=== PATIENT | female | born 1990 | race American Indian/Alaskan Native ===

== ENCOUNTER 2020-01-10 12:39 | Emergency (ER) | payer SELFPAY ==
--- NOTE | 2020-01-10 12:58 | Emergency Department Report ---
Blank Doc - Documentation Documentation: 29-year-old female that presents with left facial swelling, fever, and dental pain. Was sent by [facility]. Has seen dentist and stated to come to the ED. This initial assessment/diagnostic orders/clinical plan/treatment(s) is/are subject to change based on patient's health status, clinical progression and re- assessment by fellow clinical providers in the ED. Further treatment and workup at subsequent clinical providers discretion. Patient/guardians urged not to elope from the ED as their condition may be serious if not clinically assessed and managed. Initial orders include: 1- Patient sent to [facility] for further evaluation and treatment 2- labs for possible CT scan
[2020-01-10 13:56] LABS: Basophils % (Auto) 0.3 % (0.0-1.8); Eosinophils % (Auto) 0.2 % (0.0-4.3); Hematocrit 42.5 % (30.3-42.9); Lymphocytes # (Auto) 0.7 K/mm3 (1.2-5.4); Lymphocytes % (Auto) 7.3 % (13.4-35.0); Mean Corpuscular HGB Conc 33 % (30-34); Mean Corpuscular Volume 91 fl (79-97); Monocytes # (Auto) 0.9 K/mm3 (0.0-0.8); Monocytes % (Auto) 8.9 % (0.0-7.3); Platelet Count 182 K/mm3 (140-440); Red Cell Distribution Width 14.7 % (13.2-15.2)
[2020-01-10 13:58] LABS: BUN/Creatinine Ratio 13; Blood Urea Nitrogen 10 mg/dL (7-17); Calcium 9.4 mg/dL (8.4-10.2); Hemolysis Index 4
--- NOTE | 2020-01-10 18:48 | Emergency Department Report ---
ED ENT HPI - General Chief complaint: Dental/Oral Stated complaint: LFT SIDE SWELLING/PAIN EXTREME Time Seen by Provider: 01/10/20 12:56 Source: patient Mode of arrival: Ambulatory Limitations: No Limitations - History of Present Illness Initial comments: 29-year-old -[place] Citizen female presents to the emergency room complaining of left jaw pain for the last 5 weeks. Patient states that she went to her primary care provider at [place] and they referred her to a dentist. Patient states that she then went to the dentist and they referred her to an oral surgeon. Patient states that she went back to her regular dentist as she did not have a $300 to pay the oral surgeon. Patient states that her general dentist tried numbing her and it has made the pain worse now with swelling. It was noted in triage the patient had an elevated blood pressure with no diagnosis of hypertension as well as an elevated temperature of 100.1. MD complaint: tooth pain Onset/Timin -: week(s) Location: tooth # (14) Severity: severe Severity scale (0 -10): 7 Quality: stabbing, aching, sharp Consistency: intermittent Improves with: none Worsens with: eating Context- Dental: history of dental caries Associated Symptoms: gum swelling, toothache - Related Data Home Medications Medication Instructions Recorded Confirmed Last Taken Ranitidine HCl [Zantac 75 MG TAB] 75 mg PO BID 05/31/15 05/31/15 Unknown Previous Rx's Medication Instructions Recorded Last Taken Type Ibuprofen [Motrin 800 MG tab] 800 mg PO TID PRN #30 tablet 05/31/15 Unknown Rx Amoxicillin [Amoxicillin TAB] 875 mg PO BID #10 tablet 01/10/20 Unknown Rx Allergies Allergy/AdvReac Type Severity Reaction Status Date / Time No Known Allergies Allergy Verified 01/10/20 12:40 ED Dental HPI - General Chief complaint: Dental/Oral Stated complaint: LFT SIDE SWELLING/PAIN EXTREME Time Seen by Provider: 01/10/20 12:56 Source: patient Mode of arrival: Ambulatory Limitations: No Limitations - Related Data Home Medications Medication Instructions Recorded Confirmed Last Taken Ranitidine HCl [Zantac 75 MG TAB] 75 mg PO BID 05/31/15 05/31/15 Unknown Previous Rx's Medication Instructions Recorded Last Taken Type Ibuprofen [Motrin 800 MG tab] 800 mg PO TID PRN #30 tablet 05/31/15 Unknown Rx Amoxicillin [Amoxicillin TAB] 875 mg PO BID #10 tablet 01/10/20 Unknown Rx Allergies Allergy/AdvReac Type Severity Reaction Status Date / Time No Known Allergies Allergy Verified 01/10/20 12:40 ED Review of Systems ROS: Stated complaint: LFT SIDE SWELLING/PAIN EXTREME Other details as noted in HPI Comment: All other systems reviewed and negative ED Past Medical Hx - Past Medical History Hx Hypertension: No Hx Congestive Heart Failure: No Hx Diabetes: No Hx Deep Vein Thrombosis: No Hx Renal Disease: No Hx Sickle Cell Disease: No Hx Seizures: No Hx Asthma: No Hx COPD: No - Surgical History Past Surgical History?: No - Social History Smoking Status: Never Smoker Substance Use Type: Alcohol - Medications Home Medications: Home Medications Medication Instructions Recorded Confirmed Last Taken Type Ibuprofen [Motrin 800 MG tab] 800 mg PO TID PRN #30 tablet 05/31/15 Unknown Rx Ranitidine HCl [Zantac 75 MG TAB] 75 mg PO BID 05/31/15 05/31/15 Unknown History Amoxicillin [Amoxicillin TAB] 875 mg PO BID #10 tablet 01/10/20 Unknown Rx ED Physical Exam - General Limitations: No Limitations General appearance: alert, in no apparent distress - Head Head exam: Present: other (Left side jaw swelling with tenderness) - Eye Eye exam: Present: PERRL, EOMI - ENT ENT exam: Present: mucous membranes moist - Expanded ENT Exam Expanded Teeth exam: Present: dental caries, dental tenderness # (14), gingival enlargement - Neck Neck exam: Present: other ( goiter) - Neurological Exam Neurological exam: Present: alert, oriented X3, normal gait - Psychiatric Psychiatric exam: Present: normal affect, normal mood - Skin Skin exam: Present: warm, dry, intact, normal color. Absent: rash ED Course Vital Signs 01/10/20 01/10/20 12:42 19:38 Temperature 100.1 F H Pulse Rate 77 Respiratory 18 18 Rate Blood Pressure 196/119 O2 Sat by Pulse 100 Oximetry ED Medical Decision Making - Lab Data Result diagrams: 01/10/20 13:21 01/10/20 13:21 - Radiology Data Radiology results: report reviewed Patient: MARY AYALA MR#: [id number] : 1990 Acct:[id number] Age/Sex: 29 / F ADM Date: 01/10/20 Loc: ED Attending Dr: Ordering Physician: DOMENICA ARIAS Date of Service: 01/10/20 Procedure(s): CT facial bones w con Accession Number(s): [id number] cc: DOMENICA ARIAS FACIAL CT 01/10/2020 HISTORY: Left-sided facial swelling FINDINGS: Contrast enhanced CT images of the facial structures were obtained. Images are evaluated in the axial, coronal, and sagittal plane. There is soft tissue thickening and swelling overlying the mandible, greater on the left than on the right. There is no definite evidence of fluid collection. Some subtle cellulitic type changes are also present in this area. Prominent reactive-type adenopathy is noted in the left submandibular and jugulodigastric region. Bone windows demonstrate no evidence of significant bone destruction or dehiscence. Incidental note is made of a 1.4 cm groundglass lesion located in the left mandible posterior to the molars. It is unclear whether this represents evidence of dental procedure or could be process such as fibrous dysplasia, only incidentally noted on this exam. Paranasal sinuses are clear. There is suggestion of diffuse thyroid enlargement, which is only seen in the lowest images. The thyroid and apparently appears to be diffusely enlarged, but is only partially evaluated. IMPRESSION: Findings consistent with cellulitic process in the left side of the face, with no definite fluid collection. Reactive adenopathy. Probable diffuse thyroid enlargement. All CT scans at this location are performed using dose reduction to ALARA by means of automated exposure control. Signer Name: Conrad Alfaro MD Signed: 01/10/2020 7:00 PM Workstation Name: [id number] Transcribed By: AO Dictated By: Conrad Alfaro MD Electronically Authenticated By: Conrad Alfaro MD Signed Date/Time: 01/10/201899 DD/ 53 TD/TT: - Medical Decision Making 29-year-old -[place] Citizen female presents to the emergency room complaining of left jaw pain for the last 5 weeks. Patient states that she went to her primary care provider at [place] [facility] and they referred her to a dentist. Patient states that she then went to the dentist and they referred her to an oral surgeon. Patient states that she went back to her regular dentist as she did not have a $300 to pay the oral surgeon. Patient states that her general dentist tried numbing her and it has made the pain worse now with swelling. It was noted in triage the patient had an elevated blood pressure with no diagnosis of hypertension as well as an elevated temperature of 100.1. CBC CMP and CT of face has been ordered. CT scan shows that you have cellulitis of the left jaw there is no abscess present. If head 600 mg of clindamycin IV. I recommend to finish up amoxicillin that I have prescribed for you. Follow back up with a dentist in the next 2 to 3 days. I also like for you to follow-up with your primary care provider to have your blood pressure rechecked. Critical care attestation.: If time is entered above; I have spent that time in minutes in the direct care of this critically ill patient, excluding procedure time. ED Disposition Clinical Impression: Facial cellulitis, Thyromegaly Disposition: - TO HOME OR SELFCARE Is pt being admited?: No Does the pt Need Aspirin: No Condition: Stable Instructions: Cellulitis (ED) Additional Instructions: CT scan shows that you have cellulitis of the left jaw there is no abscess present. If head 600 mg of clindamycin IV. I recommend to finish up amoxicillin that I have prescribed for you. Follow back up with a dentist in the next 2 to 3 days. I also like for you to follow-up with your primary care provider to have your blood pressure rechecked. Prescriptions: Amoxicillin [Amoxicillin TAB] 875 mg PO BID #10 tablet Referrals: PRIMARY CARE, [Primary Care Provider] - 3-5 Days Forms: Work/School Release Form(ED)
--- NOTE | 2020-01-10 19:05 | Cat Scan Report ---
FACIAL CT 01/10/2020 HISTORY: Left-sided facial swelling FINDINGS: Contrast enhanced CT images of the facial structures were obtained. Images are evaluated in the axial, coronal, and sagittal plane. There is soft tissue thickening and swelling overlying the mandible, greater on the left than on the right. There is no definite evidence of fluid collection. Some subtle cellulitic type changes are als o present in this area. Prominent reactive-type adenopathy is noted in the left submandibular and jugulodigastric region. Bone windows demonstrate no evidence of significant bone destruction or dehiscence. Incidental note i s made of a 1.4 cm groundglass lesion located in the left mandible posterior to the molars. It is unc lear whether this represents evidence of dental procedure or could be process such as fibrous dysplas ia, only incidentally noted on this exam. Paranasal sinuses are clear. There is suggestion of diffuse thyroid enlargement, which is only seen in the lowest images. The thyr oid and apparently appears to be diffusely enlarged, but is only partially evaluated. IMPRESSION: Findings consistent with cellulitic process in the left side of the face, with no definit e fluid collection. Reactive adenopathy. Probable diffuse thyroid enlargement. All CT scans at this location are performed using dose reduction to ALARA by means of automated expos ure control. Signer Name: Conrad Alfaro MD Signed: 01/10/2020 7:00 PM Workstation Name: [id number]
[2020-01-10] MEDS ORDERED: ACETAMINOPHEN 325 MG TAB PO ONE (19:30)
[2020-01-10] MEDS ORDERED: CLINDAMYCIN 600 MG/50 mL 600 MG/50 ML BAG IV ONE (19:33)
[2020-01-10 21:22] VITALS: BP 160/99
== END 2020-01-10 21:21 | disposition home or self-care (01) ==
LOC: ED 12:39
DX: L03.211 Cellulitis of face (principal); E01.0 Iodine-deficiency related diffuse (endemic) goiter; Z79.1 Long term (current) use of non-steroidal anti-inflammatories (NSAID); Z79.2 Long term (current) use of antibiotics; Z79.899 Other long term (current) drug therapy
CPT/HCPCS: 36415; 70487; 80048; 84703; 85025; 96365; 99284; Q9967

== ENCOUNTER 2021-09-09 08:38 | Emergency (ER) | payer OTHER ==
[2021-09-09 08:49] VITALS: BP 131/103
--- NOTE | 2021-09-09 09:06 | Emergency Department Report ---
ED General Adult HPI - General Chief complaint: Chest Pain Stated complaint: CHEST PAIN Time Seen by Provider: 09/09/21 08:59 Source: patient Mode of arrival: Ambulatory Limitations: No Limitations - History of Present Illness Initial comments: This pleasant 31-year-old female presents the emergency department chief complaint of chest pain that started yesterday. She reports she was yelling at her kids and started to feel a sharp pain in her chest. She reports it is more painful with movement specifically of her arms and palpation of her chest. She has past medical hypertension, bipolar, anxiety currently takes Lamictal and Strattera. She denies associated fever, chills, night sweats, dizziness, blurry vision, nausea, vomit, diarrhea, shortness of breath, weakness or any other associated symptoms. She denies any oral contraceptive use, recent travel, immobilization or surgeries. She is a former smoker but denies any tobacco use in the last 8 months. She denies any family history of coronary artery disease, early cardiac disease or sudden cardiac . She denies any personal or family history of thromboembolic disease. She denies any history of hyperlipidemia, diabetes, or obesity. - Related Data Home Medications Medication Instructions Recorded Confirmed Last Taken Ranitidine HCl [Zantac 75 MG TAB] 75 mg PO BID 05/31/15 05/31/15 Unknown Previous Rx's Medication Instructions Recorded Last Taken Type Ibuprofen [Motrin 800 MG tab] 800 mg PO TID PRN #30 tablet 05/31/15 Unknown Rx Amoxicillin [Amoxicillin TAB] 875 mg PO BID #10 tablet 01/10/20 Unknown Rx Naproxen 500 mg PO BID #20 tablet 09/09/21 Unknown Rx Allergies Allergy/AdvReac Type Severity Reaction Status Date / Time No Known Allergies Allergy Verified 01/10/20 12:40 ED Review of Systems ROS: Stated complaint: CHEST PAIN Other details as noted in HPI Comment: All other systems reviewed and negative Constitutional: denies: chills, fever Eyes: denies: eye pain, eye discharge, vision change ENT: denies: ear pain, throat pain Respiratory: denies: cough, shortness of breath, wheezing Cardiovascular: chest pain. denies: palpitations Endocrine: no symptoms reported Gastrointestinal: denies: abdominal pain, nausea, diarrhea Genitourinary: denies: urgency, dysuria, discharge Musculoskeletal: denies: back pain, joint swelling, arthralgia Skin: denies: rash, lesions Neurological: denies: headache, weakness, paresthesias Psychiatric: as per HPI, anxiety. denies: depression Hematological/Lymphatic: denies: easy bleeding, easy bruising ED Past Medical Hx - Past Medical History Hx Hypertension: Yes Hx Congestive Heart Failure: No Hx Diabetes: No Hx Deep Vein Thrombosis: No Hx Renal Disease: No Hx Sickle Cell Disease: No Hx Seizures: No Hx Asthma: No Hx COPD: No Additional medical history: anxiety - Social History Smoking Status: Never Smoker Substance Use Type: None - Medications Home Medications: Home Medications Medication Instructions Recorded Confirmed Last Taken Type Ibuprofen [Motrin 800 MG tab] 800 mg PO TID PRN #30 tablet 05/31/15 Unknown Rx Ranitidine HCl [Zantac 75 MG TAB] 75 mg PO BID 05/31/15 05/31/15 Unknown History Amoxicillin [Amoxicillin TAB] 875 mg PO BID #10 tablet 01/10/20 Unknown Rx Naproxen 500 mg PO BID #20 tablet 09/09/21 Unknown Rx ED Physical Exam - General Limitations: No Limitations General appearance: alert, in no apparent distress - Head Head exam: Present: atraumatic, normocephalic - Eye Eye exam: Present: normal appearance, PERRL, EOMI Pupils: Present: normal accommodation - ENT ENT exam: Present: normal exam, normal orophraynx, mucous membranes moist - Neck Neck exam: Present: normal inspection, full ROM. Absent: tenderness, meningismus - Respiratory Respiratory exam: Present: normal lung sounds bilaterally, chest wall tenderness (Tenderness in the mid chest wall with light palpation, no deformity). Absent: respiratory distress, wheezes, rales, rhonchi, stridor - Cardiovascular Cardiovascular Exam: Present: regular rate, normal rhythm, normal heart sounds. Absent: systolic murmur, diastolic murmur, rubs, gallop - GI/Abdominal GI/Abdominal exam: Present: soft, normal bowel sounds. Absent: distended, tenderness, guarding, rebound, rigid - Extremities Exam Extremities exam: Present: normal inspection, full ROM, normal capillary refill. Absent: tenderness, pedal edema, calf tenderness (No posterior calf tenderness, negative Homans' sign bilaterally, no palpable cords) - Back Exam Back exam: Present: normal inspection, full ROM. Absent: tenderness, CVA tenderness (R), CVA tenderness (L) - Neurological Exam Neurological exam: Present: alert, oriented X3, CN II-XII intact, normal gait - Psychiatric Psychiatric exam: Present: normal affect, normal mood - Skin Skin exam: Present: warm, dry, intact, normal color. Absent: rash ED Course Vital Signs 09/09/21 08:44 Temperature 98.6 F Pulse Rate 90 Respiratory 18 Rate Blood Pressure 131/103 O2 Sat by Pulse 100 Oximetry - Reevaluation(s) Reevaluation #1: 09/09/21 09:05 Patient is well-appearing, nontoxic. EKG was ordered although that she is a low risk for ACS at this time. Chest x-ray is also ordered to rule out acute process such as pneumothorax, pneumomediastinum, to evaluate for the widening of the mediastinum and to rule out pneumonia. She had no clinical symptoms of any of this. She had normal equal radial pulses and no tearing or ripping pain to the back making an acute aortic dissection unlikely. She is PERC negative and a low risk by Wells criteria ruling out PE. Reevaluation #2: 09/09/21 10:12 I reevaluated the patient she is currently pain-free. EKG was ordered and showed nonspecific ST-T wave abnormalities. No comparison available. I did order troponin basic labs which patient was agreeable to. ED Medical Decision Making - Lab Data Result diagrams: 09/09/21 10:27 09/09/21 10:27 Lab Results 09/09/21 09/09/21 09/09/21 Range/Units 10:27 10:27 12:49 WBC 9.3 (4.5-11.0) K/mm3 RBC 4.51 (3.65-5.03) M/mm3 Hgb 13.1 (10.1-14.3) gm/dl Hct 41.3 (30.3-42.9) % MCV 92 (79-97) fl MCH 29 (28-32) pg MCHC 31 (30-34) % RDW 13.5 (13.2-15.2) % Plt Count 217 (140-440) K/mm3 Lymph % (Auto) 32.8 (13.4-35.0) % Chambers % (Auto) 7.0 (0.0-7.3) % Eos % (Auto) 0.6 (0.0-4.3) % Baso % (Auto) 0.5 (0.0-1.8) % Lymph # (Auto) 3.1 (1.2-5.4) K/mm3 Chambers # (Auto) 0.7 (0.0-0.8) K/mm3 Eos # (Auto) 0.1 (0.0-0.4) K/mm3 Baso # (Auto) 0.0 (0.0-0.1) K/mm3 Seg Neutrophils % 59.1 (40.0-70.0) % Seg Neutrophils # 5.5 (1.8-7.7) K/mm3 Sodium 142 (137-145) mmol/L Potassium 4.5 (3.6-5.0) mmol/L Chloride 110.8 H (98-107) mmol/L Carbon Dioxide 22 (22-30) mmol/L Anion Gap 14 mmol/L BUN 13 (7-17) mg/dL Creatinine 0.8 (0.6-1.2) mg/dL Estimated GFR > 60 ml/min BUN/Creatinine Ratio 16 % Glucose 78 (65-100) mg/dL Calcium 8.9 (8.4-10.2) mg/dL Total Bilirubin 0.30 (0.1-1.2) mg/dL AST 20 (5-40) units/L ALT 17 (7-56) units/L Alkaline Phosphatase 80 (35-129) units/L Troponin T < 0.010 < 0.010 (0.00-0.029) ng/mL Total Protein 7.4 (6.3-8.2) g/dL Albumin 4.2 (3.9-5) g/dL Albumin/Globulin Ratio 1.3 % - EKG Data When compared to previous EKG there are: previous EKG unavailable Interpretation: normal EKG (Normal sinus rhythm with a ventricular rate of 62 bpm, T wave inversions in lead III, aVF and T wave flattening in V6. No acute ST or T wave abnormalities otherwise, no STEMI.), nonspecific ST-T wave álvaro - Radiology Data Radiology results: report reviewed, image reviewed CHEST 2 VIEWS INDICATION: chest pain. COMPARISON: None. FINDINGS: Support devices: None. Heart: Within normal limits. Lungs/Pleura: No acute air space or interstitial disease. No significant pleural effusion. IMPRESSION: No acute findings. Signer Name: Cesar Alaniz MD Signed: 09/09/2021 9:42 AM Workstation Name: [id number] Transcribed By: DAKOTA Dictated By: Cesar Alaniz MD Electronically Authenticated By: Cesar Alaniz MD Signed Date/Time: 09/09/21 0942 - Medical Decision Making 31-year-old female presents the emergency department atypical chest pain after yelling at her kids. Chest pain was reproducible. EKG showed nonspecific changes overall she is a low risk for ACS. Heart score was 2 due to EKG changes and history of hypertension. She was pain-free at discharge. Troponin x2 -. She is PERC negative and low risk by Wells criteria. Chest x-ray was clear. No pneumo mediastinum, pneumothorax or pneumonia. No widening of the mediastinum and no tearing or ripping pain to the back with normal equal radial pulses making aortic dissection unlikely. Patient was given anti-inflammatories for suspected chest wall pain and cardiology follow-up for her abnormal EKG. She verbalized understand these instructions all of her questions were answered. - Differential Diagnosis ACS, PE, Pneumonia Critical care attestation.: If time is entered above; I have spent that time in minutes in the direct care of this critically ill patient, excluding procedure time. ED Disposition Clinical Impression: Nonspecific chest pain Disposition: 01 HOME / SELF CARE / HOMELESS Is pt being admited?: No Condition: Stable Instructions: Nonspecific Chest Pain, Adult Prescriptions: Naproxen 500 mg PO BID #20 tablet Referrals: [facility] [Provider Group] - 3-5 Days KEVIN SUNSHINE MD [Staff Physician] - 3-5 Days PRIMARY CARE, [Primary Care Provider] - 3-5 Days Forms: Work/School Release Form(ED) Time of Disposition: 14:38
--- NOTE | 2021-09-09 09:46 | XRay Report ---
CHEST 2 VIEWS INDICATION: chest pain. COMPARISON: None. FINDINGS: Support devices: None. Heart: Within normal limits. Lungs/Pleura: No acute air space or interstitial disease. No significant pleural effusion. IMPRESSION: No acute findings. Signer Name: Cesar Alaniz MD Signed: 09/09/2021 9:42 AM Workstation Name: [id number]
[2021-09-09 10:52] LABS: Basophils % (Auto) 0.5 % (0.0-1.8); Eosinophils # (Auto) 0.1 K/mm3 (0.0-0.4); Eosinophils % (Auto) 0.6 % (0.0-4.3); Hemoglobin 13.1 gm/dl (10.1-14.3); Lymphocytes # (Auto) 3.1 K/mm3 (1.2-5.4); Lymphocytes % (Auto) 32.8 % (13.4-35.0); Monocytes # (Auto) 0.7 K/mm3 (0.0-0.8)
[2021-09-09 11:11] LABS: Hematocrit 41.3 % (30.3-42.9); Mean Corpuscular HGB Conc 31 % (30-34); Mean Corpuscular Volume 92 fl (79-97); Platelet Count 217 K/mm3 (140-440); Red Blood Count 4.51 M/mm3 (3.65-5.03); Red Cell Distribution Width 13.5 % (13.2-15.2)
--- NOTE | 2021-09-09 11:14 | Electrocardiograph Report ---
[facility] Test Date: 2021-09-09 Test Time: 09:56:45 Pat Name: MARY AYALA Department: Room: Gender: F Cane Cutter: IMELDA : 1990 Requested By: PHILIPP GIBSON Order Number: [id number] Reading MD: Arpit Olmos Measurements Intervals [place] Rate: 62 P: 19 RI: 149 QRS: 20 QRSD: 84 T: -22 QT: 419 QTc: 425 Interpretive Statements Sinus arrhythmia Borderline T abnormalities, diffuse leads No previous ECG available for comparison Electronically Signed On 09-09-2021 11:14:14 EDT by Arpit Olmos
[2021-09-09 11:24] LABS: Alanine Aminotransferase 17 units/L (7-56); Albumin 4.2 g/dL (3.9-5); BUN/Creatinine Ratio 16; Blood Urea Nitrogen 13 mg/dL (7-17); Calcium 8.9 mg/dL (8.4-10.2); Hemolysis Index 4
== END 2021-09-09 13:54 | disposition home or self-care (01) ==
LOC: ED 08:38
DX: R07.9 Chest pain, unspecified (principal); I10 Essential (primary) hypertension; F41.9 Anxiety disorder, unspecified
CPT/HCPCS: 36415; 71046; 80053; 84484; 85025; 93005; 99283